=== PATIENT | male | born 1945 | race Caucasian/White ===

== ENCOUNTER 2024-06-19 19:25 | Observation (INO) | payer MEDICARE ==
[2024-06-19 20:30] LABS: BASOPHILS ABSOLUTE AUTO 0.02 10^3/uL (0.00-0.50); BASOPHILS PERCENT AUTO 0.2 % (0-1); EOSINOPHILS ABSOLUTE AUTO 0.01 10^3/uL (0.00-1.50); EOSINOPHILS PERCENT AUTO 0.1 % (0-6); HEMOGLOBIN 12.6 g/dL (14.0-18.0); IMMATURE GRAN ABSOLUTE AUTO 0.02 10^3/uL (0.00-0.49); IMMATURE GRAN PERCENT AUTO 0.2 % (0.0-4.9); LYMPHOCYTES ABSOLUTE AUTO 0.71 10^3/uL (0.60-5.00); LYMPHOCYTES PERCENT AUTO 6.7 % (24-44); MEAN CORPUSCULAR HEMOGLOBIN 31.7 pg (27.0-32.0); MEAN CORPUSCULAR HGB CONC 34.1 g/dL (32.0-36.0); MONOCYTES PERCENT AUTO 5.7 % (0-10); NEUTROPHILS ABSOLUTE AUTO 9.25 x10^3/uL (1.80-8.00); NEUTROPHILS PERCENT AUTO 87.1 % (41-71); PLATELET COUNT,PLT 341 10^3/uL (150-400); RED BLOOD CELL COUNT 3.98 x10^6/uL (4.50-6.00); WHITE BLOOD CELL COUNT,WBC 10.6 10^3/uL (4.0-11.0)
[2024-06-19 20:36] LABS: APPEARANCE,URINE CLEAR (CLEAR); BILIRUBIN,URINE NEGATIVE (NEGATIVE); COLOR,URINE YELLOW (YELLOW); GLUCOSE,URINE NEGATIVE (NEGATIVE); KETONES,URINE 40 mg/dL (NEGATIVE); LEUKOCYTE ESTERASE,URINE NEGATIVE (NEGATIVE); NITRITE,URINE NEGATIVE (NEGATIVE); OCCULT BLOOD,URINE NEGATIVE (NEGATIVE); PH,URINE 8.5 (4.5-8.0); PROTEIN,URINE NEGATIVE (NEGATIVE)
[2024-06-19 20:41] LABS: ALANINE AMINOTRANSFERASE,ALT 16 U/L (12-78); ALBUMIN 3.4 g/dL (3.4-5.0); ALKALINE PHOSPHATASE 114 U/L (46-116); ASPARTATE AMNIOTRANSFERASE,AST 23 U/L (15-37); BILIRUBIN TOTAL 0.8 mg/dL (0.0-1.0); BLOOD UREA NITROGEN,BUN 15 mg/dL (7-18); CALCIUM 8.8 mg/dL (8.4-10.1); CARBON DIOXIDE,CO2 23 mmol/L (21-32); CHLORIDE,CL 97 mEq/L (98-106); CREATINE KINASE,CK 92 U/L (35-232); CREATININE 0.9 mg/dL (0.7-1.3); GLUCOSE RANDOM 149 mg/dL (75-99); MAGNESIUM 1.7 mg/dL (1.8-2.4); POTASSIUM,K 3.9 mEq/L (3.5-5.0); SODIUM,NA 134 mEq/L (136-145)
[2024-06-19 20:42] LABS: AMPHETAMINES,URINE NEGATIVE (NEGATIVE); BARBITURATES,URINE NEGATIVE (NEGATIVE); BENZODIAZEPINE,URINE NEGATIVE (NEGATIVE); MDMA (ECSTASY), URINE NEGATIVE (NEGATIVE); METHADONE,URINE NEGATIVE (NEGATIVE); METHAMPHETAMINES,URINE NEGATIVE (NEGATIVE); OPIATES,URINE NEGATIVE (NEGATIVE); OXYCODONE,URINE NEGATIVE (NEGATIVE); PHENCYCLIDINE,URINE NEGATIVE (NEGATIVE); TCA,URINE NEGATIVE (NEGATIVE)
[2024-06-19 20:43] LABS: C-REACTIVE PROTEIN < 0.50 mg/dL (<=0.50); ESTIMATED GFR 88 mL/min (>=60)
[2024-06-19] MEDS: Sodium Chloride 0.9% 1,000 ML ONE (21:00)
[2024-06-19] MEDS: Sodium Chloride 0.9% 1,000 ML IV ONE (21:02)
[2024-06-19] MEDS ORDERED: Ondansetron 4 MG/2 ML SDV IV PRN (22:51)
[2024-06-19] MEDS ORDERED: Acetaminophen 325 MG Tab PO PRN (22:51)
[2024-06-20 07:12] LABS: BASOPHILS ABSOLUTE AUTO 0.01 10^3/uL (0.00-0.50); BASOPHILS PERCENT AUTO 0.1 % (0-1); EOSINOPHILS ABSOLUTE AUTO 0.02 10^3/uL (0.00-1.50); EOSINOPHILS PERCENT AUTO 0.2 % (0-6); HEMATOCRIT 37.2 % (42.0-52.0); HEMOGLOBIN 12.3 g/dL (14.0-18.0); IMMATURE GRAN ABSOLUTE AUTO 0.02 10^3/uL (0.00-0.49); IMMATURE GRAN PERCENT AUTO 0.2 % (0.0-4.9); LYMPHOCYTES ABSOLUTE AUTO 1.07 10^3/uL (0.60-5.00); LYMPHOCYTES PERCENT AUTO 12.2 % (24-44); MEAN CORPUSCULAR HEMOGLOBIN 31.1 pg (27.0-32.0); MEAN CORPUSCULAR HGB CONC 33.1 g/dL (32.0-36.0); MEAN CORPUSCULAR VOLUME 93.9 fL (83.0-97.0); MONOCYTES ABSOLUTE AUTO 0.59 10^3/uL (0.00-1.50); MONOCYTES PERCENT AUTO 6.8 % (0-10); NEUTROPHILS ABSOLUTE AUTO 7.03 x10^3/uL (1.80-8.00); NEUTROPHILS PERCENT AUTO 80.5 % (41-71); PLATELET COUNT,PLT 326 10^3/uL (150-400); RED BLOOD CELL COUNT 3.96 x10^6/uL (4.50-6.00); WHITE BLOOD CELL COUNT,WBC 8.7 10^3/uL (4.0-11.0)
[2024-06-20 07:50] LABS: BILIRUBIN TOTAL 0.8 mg/dL (0.0-1.0); CALCIUM 8.6 mg/dL (8.4-10.1); CREATININE 0.9 mg/dL (0.7-1.3); EST CRCL DRUG DOSING (CG) 69.46 mL/min; POTASSIUM,K 4.7 mEq/L (3.5-5.0); PROTEIN TOTAL,TP 6.3 g/dL (6.4-8.2)
[2024-06-20 07:53] VITALS: BP 165/72; PULSE 69
== END 2024-06-20 10:55 | disposition home or self-care (01) ==
LOC: CC.ED 19:25 → CC.MS 21:54 → CC.ED 21:55 → UNDOADMOB 21:55 → CC.MS 21:55 → UNDODISOB 06-20 10:55
PROVIDERS: ADMIT Physician Assistant Medical; ATTEND Physician Assistant Medical
DX: R41.0 Disorientation, unspecified (principal); I10 Essential (primary) hypertension; E78.00 Pure hypercholesterolemia, unspecified; Z79.899 Other long term (current) drug therapy
CPT/HCPCS: 36415; 70450; 71250; 74176; 80053; 80305; 81003; 82550; 83605; 83735; 85025; 86140; 93005; 96360; 99285; G0378; J7030; 93010; 99223; 99239